=== PATIENT | female | born 1970 | race American Indian/Alaskan Native ===

== ENCOUNTER 2022-05-21 07:17 | Inpatient (IN) | payer SELFPAY ==
[2022-05-21] MEDS ORDERED: KETOROLAC 30 MG/1 ML INJ IV ONE (07:51)
--- NOTE | 2022-05-21 08:00 | Emergency Department Report ---
ED Abdominal Pain HPI - General Chief Complaint: Abdominal Pain Stated Complaint: ABD PAIN Time Seen by Provider: 05/21/22 07:45 Source: patient, EMS Mode of arrival: Stretcher Limitations: No Limitations - History of Present Illness Initial Comments: Patient is a 51-year-old female with history of uterine fibroids presenting to ED with complaint of lower abdominal pain beginning this morning. She reports 3 episodes of heavy bleeding over the past month. Requesting pain medication. Denies fever, chills, nausea or vomiting. Severity scale (0 -10): 10 - Related Data Home Medications Medication Instructions Recorded Confirmed Last Taken Escitalopram [Lexapro] 10 mg PO DAILY 05/22/22 05/22/22 Unknown amLODIPine [Norvasc] 10 mg PO DAILY 05/22/22 05/22/22 Unknown glipiZIDE [Glucotrol] 5 mg PO QDAY 05/22/22 05/22/22 Unknown Allergies Allergy/AdvReac Type Severity Reaction Status Date / Time No Known Allergies Allergy Verified 05/21/22 08:36 ED Review of Systems ROS: Stated complaint: ABD PAIN Other details as noted in HPI Constitutional: denies: chills, fever Respiratory: denies: cough, shortness of breath, wheezing Cardiovascular: denies: chest pain, palpitations Gastrointestinal: abdominal pain. denies: nausea, vomiting Musculoskeletal: denies: back pain, joint swelling, arthralgia Skin: denies: rash, lesions Neurological: denies: headache, weakness, paresthesias Psychiatric: denies: anxiety, depression ED Past Medical Hx - Past Medical History Hx Hypertension: Yes Hx Diabetes: Yes - Surgical History Additional Surgical History: fibroids - Social History Smoking Status: Never Smoker Substance Use Type: None - Medications Home Medications: Home Medications Medication Instructions Recorded Confirmed Last Taken Type Escitalopram [Lexapro] 10 mg PO DAILY 05/22/22 05/22/22 Unknown History amLODIPine [Norvasc] 10 mg PO DAILY 05/22/22 05/22/22 Unknown History glipiZIDE [Glucotrol] 5 mg PO QDAY 05/22/22 05/22/22 Unknown History ED Physical Exam - General Limitations: No Limitations General appearance: alert, in distress - Head Head exam: Present: atraumatic, normocephalic - Respiratory Respiratory exam: Present: normal lung sounds bilaterally. Absent: respiratory distress - Cardiovascular Cardiovascular Exam: Present: regular rate, normal rhythm, normal heart sounds - GI/Abdominal GI/Abdominal exam: Present: soft. Absent: distended, tenderness - Rectal Rectal exam: Present: deferred - Neurological Exam Neurological exam: Present: alert, oriented X3 - Psychiatric Psychiatric exam: Present: normal affect, normal mood - Skin Skin exam: Present: warm, dry, intact, normal color ED Course Vital Signs 05/21/22 05/21/22 05/21/22 07:22 07:44 07:45 Temperature 98.2 F Pulse Rate 85 90 Respiratory 20 14 Rate Blood Pressure 222/123 Blood Pressure 200/100 [Left] O2 Sat by Pulse 99 76 L 100 Oximetry 05/21/22 05/21/22 05/21/22 07:47 08:00 08:16 Temperature Pulse Rate 89 59 L 86 Respiratory 18 12 16 Rate Blood Pressure 222/123 219/136 Blood Pressure 222/123 [Left] O2 Sat by Pulse 100 100 100 Oximetry 05/21/22 05/21/22 05/21/22 08:30 08:46 09:00 Temperature Pulse Rate 82 87 74 Respiratory 21 16 14 Rate Blood Pressure 207/123 229/115 223/144 Blood Pressure [Left] O2 Sat by Pulse 100 100 100 Oximetry 05/21/22 05/21/22 05/21/22 09:16 09:30 09:46 Temperature Pulse Rate 94 H 83 85 Respiratory 21 14 15 Rate Blood Pressure 223/144 207/123 207/123 Blood Pressure [Left] O2 Sat by Pulse 98 100 99 Oximetry 05/21/22 05/21/22 05/21/22 10:00 10:16 10:30 Temperature Pulse Rate 83 89 87 Respiratory 14 20 14 Rate Blood Pressure 207/123 207/123 207/123 Blood Pressure [Left] O2 Sat by Pulse 99 99 100 Oximetry 05/21/22 05/21/22 05/21/22 10:46 11:00 11:16 Temperature Pulse Rate 90 92 H 86 Respiratory 14 15 14 Rate Blood Pressure 215/112 221/112 221/119 Blood Pressure [Left] O2 Sat by Pulse 99 97 100 Oximetry 05/21/22 05/21/22 05/21/22 11:30 11:45 12:08 Temperature Pulse Rate 90 99 H 97 H Respiratory 14 19 22 Rate Blood Pressure 231/109 236/118 199/111 Blood Pressure [Left] O2 Sat by Pulse 100 98 Oximetry 05/21/22 05/21/22 05/21/22 12:15 12:30 12:46 Temperature Pulse Rate 98 H 107 H 105 H Respiratory 15 23 14 Rate Blood Pressure 201/100 173/103 198/96 Blood Pressure [Left] O2 Sat by Pulse 99 99 Oximetry 05/21/22 05/21/22 05/21/22 13:00 13:16 13:30 Temperature Pulse Rate 104 H 102 H 102 H Respiratory 26 H 17 18 Rate Blood Pressure 180/97 181/95 176/94 Blood Pressure [Left] O2 Sat by Pulse 98 98 95 Oximetry 05/21/22 05/21/22 05/21/22 13:46 14:00 14:16 Temperature Pulse Rate 100 H 98 H 100 H Respiratory 20 16 22 Rate Blood Pressure 187/97 180/92 182/98 Blood Pressure [Left] O2 Sat by Pulse 98 96 98 Oximetry 05/21/22 05/21/22 05/21/22 14:30 14:46 15:00 Temperature Pulse Rate 99 H 98 H 97 H Respiratory 16 14 13 Rate Blood Pressure 185/96 191/105 201/107 Blood Pressure [Left] O2 Sat by Pulse 97 99 97 Oximetry 05/21/22 05/21/22 05/21/22 15:16 15:30 15:46 Temperature Pulse Rate 95 H 98 H 100 H Respiratory 14 14 18 Rate Blood Pressure 184/98 191/99 182/100 Blood Pressure [Left] O2 Sat by Pulse 99 98 98 Oximetry 05/21/22 05/21/22 05/21/22 16:00 16:16 16:30 Temperature Pulse Rate 99 H 104 H 97 H Respiratory 13 15 16 Rate Blood Pressure 189/104 182/108 195/106 Blood Pressure [Left] O2 Sat by Pulse 96 98 99 Oximetry 05/21/22 05/21/22 05/21/22 16:46 17:00 17:46 Temperature Pulse Rate 103 H 102 H 98 H Respiratory 13 20 15 Rate Blood Pressure 182/108 196/91 206/113 Blood Pressure [Left] O2 Sat by Pulse 98 99 100 Oximetry 05/21/22 05/21/22 05/21/22 18:00 18:16 18:30 Temperature Pulse Rate 106 H 97 H 92 H Respiratory 16 13 13 Rate Blood Pressure 189/131 216/120 179/84 Blood Pressure [Left] O2 Sat by Pulse 99 100 98 Oximetry 05/21/22 05/21/22 05/21/22 18:40 18:50 19:00 Temperature Pulse Rate 96 H 96 H 96 H Respiratory 20 17 19 Rate Blood Pressure 206/113 163/81 145/76 Blood Pressure [Left] O2 Sat by Pulse 96 96 98 Oximetry 05/21/22 05/21/22 05/21/22 19:10 19:20 19:30 Temperature Pulse Rate 95 H 90 95 H Respiratory 14 15 11 L Rate Blood Pressure 145/76 166/77 156/79 Blood Pressure [Left] O2 Sat by Pulse 99 97 97 Oximetry 05/21/22 19:40 Temperature Pulse Rate 93 H Respiratory 12 Rate Blood Pressure 156/79 Blood Pressure [Left] O2 Sat by Pulse 98 Oximetry ED Medical Decision Making - Lab Data Result diagrams: 05/22/22 04:39 05/22/22 11:38 - Medical Decision Making Labs reviewed. CT abdomen pelvis shows large ventral abdominal hernia. Discussed with on-call surgeon who will consult. Will admit to hospitalist. Critical care attestation.: If time is entered above; I have spent that time in minutes in the direct care of this critically ill patient, excluding procedure time. ED Disposition Clinical Impression: Leukocytosis, Lower abdominal pain Ventral hernia Qualifiers: Obstruction and gangrene presence: without obstruction or gangrene Qualified Code(s): K43.9 - Ventral hernia without obstruction or gangrene Disposition: ADMITTED INPATIENT Is pt being admited?: Yes Condition: Stable
[2022-05-21] MEDS ORDERED: ONDANSETRON 4 MG/2 ML INJ ONE ×2 (08:02→12:09)
[2022-05-21 09:07] LABS: Amphetamine Screen,Urine Negative; Benzodiazepines Screen,Urine Negative; Cannabinoid Screen,Urine Negative; Cocaine Screen,Urine Negative; Methadone Screen,Urine Negative; Opiate Screen,Urine Negative
[2022-05-21] MEDS ORDERED: MORPHINE 4 MG/1 ML INJ ONE (09:15)
[2022-05-21] MEDS ORDERED: MORPHINE 4 MG/1 ML INJ IV ONE (09:15)
[2022-05-21 09:33] LABS: WBC,Urine < 1.0 /HPF (0.0-6.0)
[2022-05-21 09:34] LABS: Color,Urine Colorless (Yellow)
[2022-05-21 10:41] LABS: Basophils # (Auto) 0.1 K/mm3 (0.0-0.1); Basophils % (Auto) 0.7 % (0.0-1.8); Hemoglobin 13.2 gm/dl (10.1-14.3); Lymphocytes # (Auto) 1.1 K/mm3 (1.2-5.4); Lymphocytes % (Auto) 7.2 % (13.4-35.0); Mean Corpuscular HGB Conc 32 % (30-34); Mean Corpuscular Volume 86 fl (79-97); Monocytes # (Auto) 0.5 K/mm3 (0.0-0.8); Monocytes % (Auto) 3.5 % (0.0-7.3); Platelet Count 279 K/mm3 (140-440); Red Blood Count 4.86 M/mm3 (3.65-5.03); Red Cell Distribution Width 14.5 % (13.2-15.2)
[2022-05-21 10:47] LABS: Alanine Aminotransferase 13 units/L (7-56); Albumin 4.5 g/dL (3.9-5); BUN/Creatinine Ratio 12; Blood Urea Nitrogen 14 mg/dL (7-17); Calcium 9.8 mg/dL (8.4-10.2); Hemolysis Index 15
[2022-05-21 10:48] LABS: Bilirubin,Direct < 0.2 mg/dL (0-0.2)
[2022-05-21] MEDS ORDERED: SODIUM CHLORIDE 0.9% 1000 ML 1,000 ML IV ONE ×3 (10:51→14:24)
[2022-05-21] MEDS ORDERED: DEXTROSE 50% IN WATER (25GM) 50 ML SYRINGE IV PRN (10:53)
[2022-05-21] MEDS ORDERED: INSULIN REGULAR, HUMAN 100 UNITS in SODIUM CHLORIDE 0.9% 99 ML IV SCH (11:00)
[2022-05-21 11:15] LABS: ABG Base Excess -3.7 mmol/L (-2.0-3.0); ABG HCO3 17.8 mmol/L (20.0-26.0); ABG Methemoglobin 0.5 % (0.0-1.5); ABG Oxygen Saturation 97.9 % (95.0-99.0); ABG PCO2 23.6 mm Hg; ABG PH 7.494 pH Units (7.350-7.450); ABG PO2 97.1 mm Hg (80.0-90.0)
[2022-05-21] MEDS ORDERED: hydrALAZINE 20 MG/1 ML INJ IV ONE ×2 (11:46→19:38)
--- NOTE | 2022-05-21 12:27 | Cat Scan Report ---
CT ABDOMEN AND PELVIS WITH CONTRAST INDICATION / CLINICAL INFORMATION: Lower abdominal pain OMNIPAQUE 350 100ML NEG PREG TEST. TECHNIQUE: Axial CT images were obtained through the abdomen and pelvis after 100 mL Omnipaque [address] scans at this location are performed using CT dose reduction for ALARA by means of automated exposure control. COMPARISON: None available. FINDINGS: LOWER CHEST: No significant abnormality. LIVER: No significant abnormality. GALLBLADDER: No significant abnormality. BILE DUCTS: No significant abnormality. PANCREAS: No significant abnormality. SPLEEN: No significant abnormality. ADRENALS: No significant abnormality. RIGHT KIDNEY / URETER: No significant abnormality. LEFT KIDNEY / URETER: No significant abnormality. STOMACH / SMALL BOWEL: Much of the small bowel extrudes through the ventral abdominal hernia and lies within the pannus. The small bowel and pannus are incompletely visualized. COLON: Diverticulosis without evidence of diverticulitis. No obstruction. APPENDIX: No significant abnormality. PERITONEUM: Large ventral abdominal hernia with 8 cm mouth containing much of the small bowel as well as the cecum and transverse colon. No free fluid. No free air. No fluid collection. LYMPH NODES: No significant adenopathy. AORTA / ARTERIES: No significant abnormality. IVC / VEINS: No significant abnormality. URINARY BLADDER: No significant abnormality. REPRODUCTIVE ORGANS: The uterus is markedly enlarged with multiple heterogeneously enhancing masses, some of which are centrally hypodense. These may represent extensive uterine fibroid is some which de monstrate increased central necrosis. Given the size and multiplicity of these lesions dedicated uter ine MRI with IV contrast is recommended. ADDITIONAL FINDINGS: None. SKELETAL SYSTEM: No significant abnormality. IMPRESSION: 1. Large ventral abdominal hernia with extrusion of much of the small bowel as well as the cecum and transverse colon. There is no evidence of obstruction. The small bowel is incompletely visualized as the panus extends beyond the [id number]. 2. Enlarged and multilobulated uterus with numerous heterogeneously enhancing masses. These may repre sent fibroids with many of which undergoing degeneration, however given the size, heterogeneity, and multiplicity, further evaluation with contrast-enhanced uterine MRI is recommended. Signer Name: Mike Chappell MD Signed: 05/21/2022 12:23 PM Workstation Name: [employer]
[2022-05-21] MEDS ORDERED: HYDROmorphone 1 MG/1 ML INJ IV ONE (12:41)
[2022-05-21] MEDS ORDERED: INSULIN REGULAR, HUMAN 100 UNITS/1 ML IV ONE (14:24)
[2022-05-21 15:06] LABS: BUN/Creatinine Ratio 14; Blood Urea Nitrogen 14 mg/dL (7-17); Calcium 8.3 mg/dL (8.4-10.2); Hemolysis Index 31
[2022-05-21 15:25] LABS: BUN/Creatinine Ratio 12; Blood Urea Nitrogen 11 mg/dL (7-17); Calcium 8.2 mg/dL (8.4-10.2); Hemolysis Index 30
--- NOTE | 2022-05-21 16:55 | History and Physical Report ---
History of Present Illness Date of examination: 05/21/22 Date of admission: 05/21/2022 Chief complaint: Lower abdominal pain for 1 week History of present illness: 51-year-old female with history of uterine fibroids comes in for severe abdominal pain especially in the lower abdomen in the suprapubic region. Also 3 with associated bleeding over the past month. Patient had fibroid removal in the past. Uterus is intact. During examination there is a ventral hernia in the lower part of abdomen. Bowel sounds are present. Pain is about 8 on a scale of 1-10. Intermittent in nature. No fever or chills. No precipitating factors. No dysuria. - Past Medical History --Hypertension: Yes --Diabetes: Yes - Surgical History Additional Surgical History: fibroids - Social History Smoking Status: Never Smoker Substance Use Type: None - Medications Home Medications: Home Medications Medication Instructions Recorded Confirmed Last Taken Type Cyclobenzaprine HCl 7.5 mg PO BID PRN #10 tab 07/18/16 Unknown Rx [Cyclobenzaprine 7.5 MG TAB] Ibuprofen [Motrin 800 MG tab] 800 mg PO BID PRN #10 tablet 07/18/16 Unknown Rx Review of Systems ROS: Stated complaint: ABD PAIN Other details as noted in HPI Constitutional: denies: chills, fever Respiratory: denies: cough, shortness of breath, wheezing Cardiovascular: denies: chest pain, palpitations Gastrointestinal: abdominal pain. denies: nausea, vomiting Musculoskeletal: denies: back pain, joint swelling, arthralgia Skin: denies: rash, lesions Neurological: denies: headache, weakness, paresthesias Psychiatric: denies: anxiety, depression Medications and Allergies Allergies Allergy/AdvReac Type Severity Reaction Status Date / Time No Known Allergies Allergy Verified 05/21/22 08:36 Home Medications Medication Instructions Recorded Confirmed Last Taken Type Escitalopram [Lexapro] 10 mg PO DAILY 05/22/22 05/22/22 Unknown History amLODIPine [Norvasc] 10 mg PO DAILY 05/22/22 05/22/22 Unknown History glipiZIDE [Glucotrol] 5 mg PO QDAY 05/22/22 05/22/22 Unknown History Active Meds: Active Medications Dextrose (Dextrose 50% In Water (25gm) 50 Ml Syringe) 0 ml IV Q30MIN PRN; Protocol PRN Reason: Hypoglycemia Exam - Constitutional Vitals: Temp Pulse Resp BP Pulse Ox 98.2 F 97 H 16 195/106 99 05/21/22 07:22 05/21/22 16:30 05/21/22 16:30 05/21/22 16:30 05/21/22 16:30 General appearance: Present: mild distress, well-nourished - EENT Eyes: Present: PERRL ENT: hearing intact, clear oral mucosa - Neck Neck: Present: supple, normal ROM - Respiratory Respiratory effort: normal Respiratory: bilateral: CTA - Cardiovascular Heart rate: 98 Rhythm: regular Heart Sounds: Present: S1 & S2. Absent: rub, click - Extremities Extremities: no ischemia, pulses intact, pulses symmetrical, No edema Peripheral Pulses: within normal limits - Abdominal General gastrointestinal: Present: soft, non-tender, non-distended, normal bowel sounds Localized gastrointestinal: tender: diffuse (Ventral hernia lower abdomen) Female genitourinary: Present: normal - Integumentary Integumentary: Present: clear, warm, dry - Musculoskeletal Musculoskeletal: gait normal, strength equal bilaterally - Psychiatric Psychiatric: appropriate mood/affect, intact judgment & insight - Neurologic Neurologic: CNII-XII intact, moves all extremities Results - Labs CBC & Chem 7: 05/22/22 04:39 05/22/22 04:39 Labs: Laboratory Last Values WBC 14.6 K/mm3 (4.5-11.0) H 05/21/22 10:18 RBC 4.86 M/mm3 (3.65-5.03) 05/21/22 10:18 Hgb 13.2 gm/dl (10.1-14.3) 05/21/22 10:18 Hct 42.0 % (30.3-42.9) 05/21/22 10:18 MCV 86 fl (79-97) 05/21/22 10:18 MCH 27 pg (28-32) L 05/21/22 10:18 MCHC 32 % (30-34) 05/21/22 10:18 RDW 14.5 % (13.2-15.2) 05/21/22 10:18 Plt Count 279 K/mm3 (140-440) 05/21/22 10:18 Lymph % (Auto) 7.2 % (13.4-35.0) L 05/21/22 10:18 Chambers % (Auto) 3.5 % (0.0-7.3) 05/21/22 10:18 Eos % (Auto) 0.0 % (0.0-4.3) 05/21/22 10:18 Baso % (Auto) 0.7 % (0.0-1.8) 05/21/22 10:18 Lymph # (Auto) 1.1 K/mm3 (1.2-5.4) L 05/21/22 10:18 Chambers # (Auto) 0.5 K/mm3 (0.0-0.8) 05/21/22 10:18 Eos # (Auto) 0.0 K/mm3 (0.0-0.4) 05/21/22 10:18 Baso # (Auto) 0.1 K/mm3 (0.0-0.1) 05/21/22 10:18 Seg Neutrophils % 88.6 % (40.0-70.0) H 05/21/22 10:18 Seg Neutrophils # 12.9 K/mm3 (1.8-7.7) H 05/21/22 10:18 ABG pH 7.494 pH Units (7.350-7.450) H 05/21/22 11:05 ABG pCO2 23.6 mm Hg 05/21/22 11:05 ABG pO2 97.1 mm Hg (80.0-90.0) H 05/21/22 11:05 ABG HCO3 17.8 mmol/L (20.0-26.0) L 05/21/22 11:05 ABG O2 Saturation 97.9 % (95.0-99.0) 05/21/22 11:05 ABG O2 Content 18.0 (0.0-44) 05/21/22 11:05 ABG Base Excess -3.7 mmol/L (-2.0-3.0) L 05/21/22 11:05 ABG Hemoglobin 13.3 gm/dl (12.0-16.0) 05/21/22 11:05 ABG Carboxyhemoglobin 1.6 % (0.0-5.0) 05/21/22 11:05 ABG Methemoglobin 0.5 % (0.0-1.5) 05/21/22 11:05 Oxyhemoglobin 95.9 % (95.0-99.0) 05/21/22 11:05 FiO2 21 % 05/21/22 11:05 Sodium 132 mmol/L (137-145) L 05/21/22 14:44 Sodium 135 mmol/L (137-145) L 05/21/22 14:44 Potassium 3.2 mmol/L (3.6-5.0) L D 05/21/22 14:44 Potassium 4.1 mmol/L (3.6-5.0) D 05/21/22 14:44 Chloride 99.9 mmol/L (98-107) 05/21/22 14:44 Chloride 102.4 mmol/L (98-107) 05/21/22 14:44 Carbon Dioxide 17 mmol/L (22-30) L 05/21/22 14:44 Carbon Dioxide 18 mmol/L (22-30) L 05/21/22 14:44 Anion Gap 17 mmol/L 05/21/22 14:44 Anion Gap 20 mmol/L 05/21/22 14:44 BUN 11 mg/dL (7-17) 05/21/22 14:44 BUN 14 mg/dL (7-17) 05/21/22 14:44 Creatinine 0.9 mg/dL (0.6-1.2) 05/21/22 14:44 Creatinine 1.0 mg/dL (0.6-1.2) 05/21/22 14:44 Estimated GFR > 60 ml/min 05/21/22 14:44 Estimated GFR > 60 ml/min 05/21/22 14:44 BUN/Creatinine Ratio 12 % 05/21/22 14:44 BUN/Creatinine Ratio 14 % 05/21/22 14:44 Glucose 112 mg/dL (65-100) H 05/21/22 14:44 Glucose 398 mg/dL (65-100) H 05/21/22 14:44 POC Glucose 410 mg/dL (70-105) H 05/21/22 11:37 Lactic Acid 1.20 mmol/L (0.7-2.0) 05/21/22 Unknown Calcium 8.2 mg/dL (8.4-10.2) L D 05/21/22 14:44 Calcium 8.3 mg/dL (8.4-10.2) L 05/21/22 14:44 Phosphorus 2.30 mg/dL (2.5-4.5) L 05/21/22 11:23 Magnesium 2.00 mg/dL (1.7-2.3) 05/21/22 11:23 Total Bilirubin 0.40 mg/dL (0.1-1.2) 05/21/22 10:18 Direct Bilirubin < 0.2 mg/dL (0-0.2) 05/21/22 10:18 Indirect Bilirubin 0.2 mg/dL 05/21/22 10:18 AST 18 units/L (5-40) 05/21/22 10:18 ALT 13 units/L (7-56) 05/21/22 10:18 Alkaline Phosphatase 92 units/L (35-129) 05/21/22 10:18 Total Protein 7.9 g/dL (6.3-8.2) 05/21/22 10:18 Albumin 4.5 g/dL (3.9-5) 05/21/22 10:18 Albumin/Globulin Ratio 1.3 % 05/21/22 10:18 HCG, Qual Negative (Negative) 05/21/22 10:18 Urine Color Colorless (Yellow) 05/21/22 Unknown Urine Turbidity Clear (Clear) 05/21/22 Unknown Specific [place] (Man) 1.010 (1.003-1.030) 05/21/22 Unknown Ur Protein (Man) 3+ mg/dL (Negative) 05/21/22 Unknown Ur Ketones (Man) 1+ (Negative) 05/21/22 Unknown Ur Nitrite (Man) Negative (Negative) 05/21/22 Unknown Ur Reducing Substances Not Reportable 05/21/22 Unknown Urine Bilirubin (Man) Negative (Negative) 05/21/22 Unknown Urine Ictotest Not Reportable 05/21/22 Unknown Leukocyte Esterase (Man) Negative (Negative) 05/21/22 Unknown Urine WBC (Auto) < 1.0 /HPF (0.0-6.0) 05/21/22 Unknown Urine RBC (Auto) 1.0 /HPF (0.0-6.0) 05/21/22 Unknown U Epithel Cells (Auto) 1.0 /HPF (0-13.0) 05/21/22 Unknown Urine RBC (Manual) 1+ (Negative) 05/21/22 Unknown Urine Opiates Screen Negative 05/21/22 08:50 Urine Methadone Screen Negative 05/21/22 08:50 Ur Barbiturates Screen Negative 05/21/22 08:50 Ur Phencyclidine Scrn Negative 05/21/22 08:50 Ur Amphetamines Screen Negative 05/21/22 08:50 U Benzodiazepines Scrn Negative 05/21/22 08:50 Urine Cocaine Screen Negative 05/21/22 08:50 U Marijuana (THC) Screen Negative 05/21/22 08:50 Drugs of Abuse Note Disclamer 05/21/22 08:50 - Imaging and Cardiology CT scan - abdomen: report reviewed CT scan - pelvis: report reviewed Imaging and Cardiology: Abdomen CT and pelvis Large ventral abdominal hernia with extrusion myself the small bowel as well as the cecum and transverse colon. There is no evidence of obstruction. The small bowel is incompletely visualized as the pannus extends beyond the [id number]. And Enlarging multilobulated uterus with numerous either axillary Absent masses. Represent fibroids with many FH undergoing degeneration. However given the size iatrogenically and multiplicity further evaluation with contrast-enhanced with an MRI is recommended. Assessment and Plan Advance Directives: Yes (Full code) VTE prophylaxis?: Chemical (Full code) Plan of care discussed with patient/family: Yes - Patient Problems (1) Acute abdominal pain Current Visit: Yes Status: Acute Plan to address problem: Secondary to ventral hernia in the suprapubic region. Needs surgical intervention. Surgery consulted. (2) Ventral hernia Current Visit: Yes Status: Acute Qualifiers: Obstruction and gangrene presence: without obstruction or gangrene Qualified Code(s): K43.9 - Ventral hernia without obstruction or gangrene Plan to address problem: Patient has severe ventral hernia in the lower abdomen involving the small bowel cecum and transverse colon. Also the uterus. Patient needs surgical intervention and may be hysterectomy. Will defer to surgery. (3) Leukocytosis Current Visit: Yes Status: Acute Plan to address problem: No source of infection. IV Zosyn for possible intra-abdominal infection. (4) Hypertension Current Visit: Yes Status: Chronic Qualifiers: Hypertension type: primary hypertension Qualified Code(s): I10 - Essential (primary) hypertension Plan to address problem: Continue antihypertensives. Adjust medications. (5) T2DM (type 2 diabetes mellitus) Current Visit: Yes Status: Chronic Qualifiers: Diabetes mellitus long-term insulin use: unspecified long-term insulin use status Plan to address problem: Coverage for now Check hemoglobin A1c (6) ANITA (acute kidney injury) Current Visit: Yes Status: Acute Plan to address problem: Vasomotor nephropathy IV fluids for now (7) DVT prophylaxis Current Visit: Yes Status: Acute Plan to address problem: On heparin and GI prophylaxis (8) Advance care planning Current Visit: Yes Status: Acute Plan to address problem: Disease education conducted, care plan discussed, diagnosis and prognosis discussed. Patient acknowledges care plan. Patient is full code. Care plan +30 minutes.
[2022-05-21] MEDS ORDERED: MORPHINE 2 MG/1 ML INJ IV PRN (17:01)
[2022-05-21] MEDS ORDERED: METOCLOPRAMIDE 10 MG/2 ML INJ IV PRN (17:01)
[2022-05-21] MEDS ORDERED: ONDANSETRON 4 MG/2 ML INJ IV PRN (17:01)
[2022-05-21] MEDS ORDERED: SODIUM CHLORIDE 0.9% 1000 ML 1,000 ML IV SCH (17:15)
[2022-05-21] MEDS ORDERED: HYDROmorphone 1 MG/1 ML INJ IV PRN (17:28)
[2022-05-21 17:43] LABS: BUN/Creatinine Ratio 13; Blood Urea Nitrogen 14 mg/dL (7-17); Calcium 9.1 mg/dL (8.4-10.2); Hemolysis Index 30
[2022-05-21] MEDS ORDERED: INSULIN LISPRO 100 UNIT/ML SUB-Q SCH (18:00)
[2022-05-21] MEDS: INSULIN LISPRO 100 UNIT/ML SUB-Q SCH ×2 (18:18→22:46)
[2022-05-21] MEDS: HEPARIN 5,000 UNIT/1 ML VIAL SUB-Q SCH (22:47)
[2022-05-21] MEDS: hydrALAZINE 20 MG/1 ML INJ IV PRN (22:47)
[2022-05-22] MEDS: INSULIN LISPRO 100 UNIT/ML SUB-Q SCH ×6 (02:22→21:35)
[2022-05-22] MEDS: ACETAMINOPHEN 325 MG TAB PO PRN ×3 (02:30→21:17)
[2022-05-22] MEDS ORDERED: ZOLPIDEM 5 MG TAB PO ONE (02:30)
[2022-05-22 05:24] LABS: Hematocrit 38.6 % (30.3-42.9); Hemoglobin 12.4 gm/dl (10.1-14.3); Mean Corpuscular HGB Conc 32 % (30-34); Mean Corpuscular Volume 85 fl (79-97); Platelet Count 330 K/mm3 (140-440); Red Blood Count 4.52 M/mm3 (3.65-5.03); Red Cell Distribution Width 14.9 % (13.2-15.2)
[2022-05-22 05:42] LABS: Calcium 8.8 mg/dL (8.4-10.2)
[2022-05-22 06:39] LABS: Basophils % (Manual) 0 % (0.0-1.8); Total Cells Counted 100
[2022-05-22 06:40] LABS: Anisocytosis 1+; Eosinophils % (Manual) 0 % (0.0-4.3); Platelet Estimate Consistent w Auto
[2022-05-22] MEDS: CEFEPIME/NS 2 GM/100 ML 2 GM/100 ML BAG IV SCH ×2 (07:18→21:16)
[2022-05-22] MEDS: HEPARIN 5,000 UNIT/1 ML VIAL SUB-Q SCH ×2 (10:01→21:17)
--- NOTE | 2022-05-22 11:39 | Progress Note ---
Assessment and Plan Assessment and plan: #Acute abdominal pain #Ventral hernia without obstruction or gangrene #SIRS Worsening leukocytosis WBC 14.6--> 23.2 CT abdomen/pelvis with contrast (05/21/2022) revealing "large ventral abdominal hernia with extrusion of much of the small bowel as well as the cecum and transverse colon; there is no evidence of obstruction. Small bowel is not completely visualized as the pannus extends beyond the [id number]". Continue cefepime 2 g daily. Unremarkable urinalysis. Pending blood cultures. General surgery consulted; pending recs. #ANITA secondary to vasomotor nephropathy Creatinine 1.5 (baseline within normal limits) Renally dose meds and avoid nephrotoxic drugs. Consider nephrology consult if creatinine worsens. Monitor with repeat BMP tomorrow morning. #Multiple fibroids with central necrosis CT abdomen/pelvis with contrast (05/21/2022) revealing enlarging multilobulated uterus with numerous heterogeneously enhancing masses. These may represent fibroids with many which undergoing degeneration. Continue analgesics as needed Gynecology consulted; pending recs. #Hypertension - home medications: Amlodipine 10 mg daily - current medications: Amlodipine 10 mg daily - SBP goal <160 and DBP goal <90 while inpatient - continue to monitor #Non-insulin dependent type II diabetes mellitus - hemoglobin A1c: Pending hemoglobin A1c - home regimen: Glipizide 5 mg daily - current regimen: Moderate SSI + glipizide 5 mg daily - blood glucose goal 140-180 while inpatient - continue to monitor #Depression Continue home Lexapro 10 mg daily #Obesity #Weight loss counseling #Exercise counseling - BMI 34.2 - Counseled patient on the importance of weight loss, incorporating exercise, and dietary changes (lean meats, fresh fruits and vegetables, and water intake). Patient expresses understanding. - Time: +15 min #Advanced care planning -Disease education conducted, care plan discussed, diagnoses discussed, prognosis discussed, and patient acknowledges understanding with care plan -Time: +30 min Disposition Plan: Continue medical management Total Time Spent with Patient (Minutes): 45 minutes History Interval history: No acute events overnight. Hospitalist Physical - Constitutional Vitals: Temp Pulse Resp BP Pulse Ox 99.3 F 109 H 16 150/92 98 05/22/22 04:53 05/22/22 04:53 05/22/22 04:53 05/22/22 04:53 05/22/22 04:53 General appearance: Present: no acute distress, well-nourished, obese - EENT Eyes: Present: PERRL, EOM intact ENT: hearing intact, clear oral mucosa, dentition normal - Neck Neck: Present: supple, normal ROM - Respiratory Respiratory effort: normal Respiratory: bilateral: CTA - Cardiovascular Rhythm: regular Heart Sounds: Present: S1 & S2 - Extremities Extremities: no ischemia, pulses intact, pulses symmetrical, No edema, normal temperature, normal color, Full ROM Peripheral Pulses: within normal limits - Abdominal General gastrointestinal: soft, non-tender, non-distended, normal bowel sounds - Integumentary Integumentary: Present: clear, warm, dry - Psychiatric Psychiatric: appropriate mood/affect, intact judgment & insight, memory intact, cooperative - Neurologic Neurologic: CNII-XII intact, moves all extremities - Allied Health Allied health notes reviewed: nursing Results - Labs CBC & Chem 7: 05/22/22 04:39 05/22/22 04:39 Labs: Laboratory Last Values WBC 23.2 K/mm3 (4.5-11.0) H 05/22/22 04:39 RBC 4.52 M/mm3 (3.65-5.03) 05/22/22 04:39 Hgb 12.4 gm/dl (10.1-14.3) 05/22/22 04:39 Hct 38.6 % (30.3-42.9) 05/22/22 04:39 MCV 85 fl (79-97) 05/22/22 04:39 MCH 28 pg (28-32) 05/22/22 04:39 MCHC 32 % (30-34) 05/22/22 04:39 RDW 14.9 % (13.2-15.2) 05/22/22 04:39 Plt Count 330 K/mm3 (140-440) 05/22/22 04:39 Lymph % (Auto) 7.2 % (13.4-35.0) L 05/21/22 10:18 [place] % (Auto) 3.5 % (0.0-7.3) 05/21/22 10:18 Eos % (Auto) 0.0 % (0.0-4.3) 05/21/22 10:18 Baso % (Auto) 0.7 % (0.0-1.8) 05/21/22 10:18 Lymph # (Auto) 1.1 K/mm3 (1.2-5.4) L 05/21/22 10:18 [place] # (Auto) 0.5 K/mm3 (0.0-0.8) 05/21/22 10:18 Eos # (Auto) 0.0 K/mm3 (0.0-0.4) 05/21/22 10:18 Baso # (Auto) 0.1 K/mm3 (0.0-0.1) 05/21/22 10:18 Add Manual Diff Complete 05/22/22 04:39 Total Counted 100 05/22/22 04:39 Seg Neutrophils % 88.6 % (40.0-70.0) H 05/21/22 10:18 Seg Neuts % (Manual) 77.0 % (40.0-70.0) H 05/22/22 04:39 Band Neutrophils % 0 % 05/22/22 04:39 Lymphocytes % (Manual) 18.0 % (13.4-35.0) 05/22/22 04:39 Reactive Lymphs % (Man) 0 % 05/22/22 04:39 Monocytes % (Manual) 5.0 % (0.0-7.3) 05/22/22 04:39 Eosinophils % (Manual) 0 % (0.0-4.3) 05/22/22 04:39 Basophils % (Manual) 0 % (0.0-1.8) 05/22/22 04:39 Metamyelocytes % 0 % 05/22/22 04:39 Myelocytes % 0 % 05/22/22 04:39 Promyelocytes % 0 % 05/22/22 04:39 Blast Cells % 0 % 05/22/22 04:39 Nucleated RBC % Not Reportable 05/22/22 04:39 Seg Neutrophils # 12.9 K/mm3 (1.8-7.7) H 05/21/22 10:18 Seg Neutrophils # Man 17.9 K/mm3 (1.8-7.7) H 05/22/22 04:39 Band Neutrophils # 0.0 K/mm3 05/22/22 04:39 Lymphocytes # (Manual) 4.2 K/mm3 (1.2-5.4) 05/22/22 04:39 Abs React Lymphs (Man) 0.0 K/mm3 05/22/22 04:39 Monocytes # (Manual) 1.2 K/mm3 (0.0-0.8) H 05/22/22 04:39 Eosinophils # (Manual) 0.0 K/mm3 (0.0-0.4) 05/22/22 04:39 Basophils # (Manual) 0.0 K/mm3 (0.0-0.1) 05/22/22 04:39 Metamyelocytes # 0.0 K/mm3 05/22/22 04:39 Myelocytes # 0.0 K/mm3 05/22/22 04:39 Promyelocytes # 0.0 K/mm3 05/22/22 04:39 Blast Cells # 0.0 K/mm3 05/22/22 04:39 WBC Morphology Not Reportable 05/22/22 04:39 Hypersegmented Neuts Not Reportable 05/22/22 04:39 Hyposegmented Neuts Not Reportable 05/22/22 04:39 Hypogranular Neuts Not Reportable 05/22/22 04:39 Smudge Cells Not Reportable 05/22/22 04:39 Toxic Granulation Not Reportable 05/22/22 04:39 Toxic Vacuolation Not Reportable 05/22/22 04:39 Dohle Bodies Not Reportable 05/22/22 04:39 Pelger-Huet Anomaly Not Reportable 05/22/22 04:39 Vikki Rods Not Reportable 05/22/22 04:39 Platelet Estimate Consistent w auto 05/22/22 04:39 Clumped Platelets Not Reportable 05/22/22 04:39 Plt Clumps, EDTA Not Reportable 05/22/22 04:39 Large Platelets Not Reportable 05/22/22 04:39 Giant Platelets Not Reportable 05/22/22 04:39 Platelet Satelliting Not Reportable 05/22/22 04:39 Plt Morphology Comment Not Reportable 05/22/22 04:39 RBC Morphology Not Reportable 05/22/22 04:39 Dimorphic RBCs Not Reportable 05/22/22 04:39 Polychromasia Not Reportable 05/22/22 04:39 Hypochromasia Not Reportable 05/22/22 04:39 Poikilocytosis Not Reportable 05/22/22 04:39 Anisocytosis 1+ 09/12/22 04:39 Microcytosis Not Reportable 05/22/22 04:39 Macrocytosis Not Reportable 05/22/22 04:39 Spherocytes Not Reportable 05/22/22 04:39 Pappenheimer Bodies Not Reportable 05/22/22 04:39 Sickle Cells Not Reportable 05/22/22 04:39 Target Cells Not Reportable 05/22/22 04:39 Tear Drop Cells Not Reportable 05/22/22 04:39 Ovalocytes Not Reportable 05/22/22 04:39 Helmet Cells Not Reportable 05/22/22 04:39 [place] Bodies Not Reportable 05/22/22 04:39 Galt Rings Not Reportable 05/22/22 04:39 Ashley Cells Not Reportable 05/22/22 04:39 Bite Cells Not Reportable 05/22/22 04:39 Crenated Cell Not Reportable 05/22/22 04:39 Elliptocytes Not Reportable 05/22/22 04:39 Acanthocytes (Spur) Not Reportable 05/22/22 04:39 Rouleaux Not Reportable 05/22/22 04:39 Hemoglobin C Crystals Not Reportable 05/22/22 04:39 Schistocytes Not Reportable 05/22/22 04:39 Malaria parasites Not Reportable 05/22/22 04:39 Hussein Bodies Not Reportable 05/22/22 04:39 Hem Pathologist Commnt No 05/22/22 04:39 ABG pH 7.494 pH Units (7.350-7.450) H 05/21/22 11:05 ABG pCO2 23.6 mm Hg 05/21/22 11:05 ABG pO2 97.1 mm Hg (80.0-90.0) H 05/21/22 11:05 ABG HCO3 17.8 mmol/L (20.0-26.0) L 05/21/22 11:05 ABG O2 Saturation 97.9 % (95.0-99.0) 05/21/22 11:05 ABG O2 Content 18.0 (0.0-44) 05/21/22 11:05 ABG Base Excess -3.7 mmol/L (-2.0-3.0) L 05/21/22 11:05 ABG Hemoglobin 13.3 gm/dl (12.0-16.0) 05/21/22 11:05 ABG Carboxyhemoglobin 1.6 % (0.0-5.0) 05/21/22 11:05 ABG Methemoglobin 0.5 % (0.0-1.5) 05/21/22 11:05 Oxyhemoglobin 95.9 % (95.0-99.0) 05/21/22 11:05 FiO2 21 % 05/21/22 11:05 Sodium 135 mmol/L (137-145) L 05/22/22 04:39 Potassium 4.1 mmol/L (3.6-5.0) 05/22/22 04:39 Chloride 99.8 mmol/L (98-107) 05/22/22 04:39 Carbon Dioxide 20 mmol/L (22-30) L 05/22/22 04:39 Anion Gap 19 mmol/L 05/22/22 04:39 BUN 20 mg/dL (7-17) H 05/22/22 04:39 Creatinine 1.5 mg/dL (0.6-1.2) H 05/22/22 04:39 Estimated GFR 44 ml/min 05/22/22 04:39 BUN/Creatinine Ratio 13 % 05/22/22 04:39 Glucose 179 mg/dL (65-100) H 05/22/22 04:39 POC Glucose 183 mg/dL (70-105) H 05/22/22 05:37 Lactic Acid 1.20 mmol/L (0.7-2.0) 05/21/22 Unknown Calcium 8.8 mg/dL (8.4-10.2) 05/22/22 04:39 Phosphorus 2.30 mg/dL (2.5-4.5) L 05/21/22 11:23 Magnesium 2.00 mg/dL (1.7-2.3) 05/21/22 11:23 Total Bilirubin 0.40 mg/dL (0.1-1.2) 05/21/22 10:18 Direct Bilirubin < 0.2 mg/dL (0-0.2) 05/21/22 10:18 Indirect Bilirubin 0.2 mg/dL 05/21/22 10:18 AST 18 units/L (5-40) 05/21/22 10:18 ALT 13 units/L (7-56) 05/21/22 10:18 Alkaline Phosphatase 92 units/L (35-129) 05/21/22 10:18 Total Protein 7.9 g/dL (6.3-8.2) 05/21/22 10:18 Albumin 4.5 g/dL (3.9-5) 05/21/22 10:18 Albumin/Globulin Ratio 1.3 % 05/21/22 10:18 HCG, Qual Negative (Negative) 05/21/22 10:18 Urine Color Colorless (Yellow) 05/21/22 Unknown Urine Turbidity Clear (Clear) 05/21/22 Unknown Specific [place] (Man) 1.010 (1.003-1.030) 05/21/22 Unknown Ur Protein (Man) 3+ mg/dL (Negative) 05/21/22 Unknown Ur Ketones (Man) 1+ (Negative) 05/21/22 Unknown Ur Nitrite (Man) Negative (Negative) 05/21/22 Unknown Ur Reducing Substances Not Reportable 05/21/22 Unknown Urine Bilirubin (Man) Negative (Negative) 05/21/22 Unknown Urine Ictotest Not Reportable 05/21/22 Unknown Leukocyte Esterase (Man) Negative (Negative) 05/21/22 Unknown Urine WBC (Auto) < 1.0 /HPF (0.0-6.0) 05/21/22 Unknown Urine RBC (Auto) 1.0 /HPF (0.0-6.0) 05/21/22 Unknown U Epithel Cells (Auto) 1.0 /HPF (0-13.0) 05/21/22 Unknown Urine RBC (Manual) 1+ (Negative) 05/21/22 Unknown Urine Opiates Screen Negative 05/21/22 08:50 Urine Methadone Screen Negative 05/21/22 08:50 Ur Barbiturates Screen Negative 05/21/22 08:50 Ur Phencyclidine Scrn Negative 05/21/22 08:50 Ur Amphetamines Screen Negative 05/21/22 08:50 U Benzodiazepines Scrn Negative 05/21/22 08:50 Urine Cocaine Screen Negative 05/21/22 08:50 U Marijuana (THC) Screen Negative 05/21/22 08:50 Drugs of Abuse Note Disclamer 05/21/22 08:50 [place]/IV: Voiding Method Toilet Active Medications - Current Medications Current Medications: Generic Name Dose Route Start Last Admin Trade Name Freq PRN Reason Stop Dose Admin Acetaminophen 650 mg 05/21/22 17:01 05/22/22 02:30 Acetaminophen 325 Mg Tab PO 650 mg Q4H PRN Administration Pain MILD(1-3)/Fever >100.5/DAMICO Dextrose 0 ml 05/21/22 10:53 Dextrose 50% In Water (25gm) 50 Ml Syringe IV Q30MIN PRN Hypoglycemia Protocol Heparin Sodium (Porcine) 5,000 unit 05/21/22 22:00 05/22/22 10:01 Heparin 5,000 Unit/1 Ml Vial SUB-Q 5,000 unit Q12HR PERRY Administration Hydralazine HCl 10 mg 05/21/22 21:46 05/21/22 22:47 Hydralazine 20 Mg/1 Ml Inj IV 10 mg Q6HR PRN Administration Blood Pressure Hydromorphone HCl 1 mg 05/21/22 17:28 05/21/22 18:42 Hydromorphone 1 Mg/1 Ml Inj IV 1 mg Q3H PRN Administration Pain , Severe (7-10) Sodium Chloride 1,000 mls @ 75 mls/hr 05/21/22 17:15 05/21/22 22:45 Nacl 0.9% 1000 Ml IV 75 mls/hr DIRECT PERRY Administration Cefepime HCl 2 gm in 100 mls @ 200 mls/hr 05/22/22 07:00 05/22/22 07:18 Cefepime/Ns 2 Gm/100 Ml IV 200 mls/hr Q12H PERRY Administration Protocol Insulin Human Lispro 0 unit 05/21/22 18:00 05/22/22 10:12 Insulin Lispro 100 Unit/Ml SUB-Q 3 unit Q4H PERRY Administration Protocol Melatonin 10 mg 05/22/22 22:00 Melatonin 5 Mg Tab PO QHS PERRY Metoclopramide HCl 10 mg 05/21/22 17:01 Metoclopramide 10 Mg/2 Ml Inj IV Q6H PRN Nausea And Vomiting Morphine Sulfate 2 mg 05/21/22 17:01 05/21/22 22:49 Morphine 2 Mg/1 Ml Inj IV 2 mg Q4H PRN Administration Pain, Moderate (4-6) Ondansetron HCl 4 mg 05/21/22 17:01 Ondansetron 4 Mg/2 Ml Inj IV Q8H PRN Nausea And Vomiting Sodium Chloride 10 ml 05/21/22 22:00 05/22/22 10:03 Sodium Chloride 0.9% 10 Ml Flush Syringe IV 10 ml BID PERRY Administration Sodium Chloride 10 ml 05/21/22 17:01 Sodium Chloride 0.9% 10 Ml Flush Syringe IV PRN PRN LINE FLUSH
[2022-05-22] MEDS: amLODIPine 10 MG TAB PO SCH (12:24)
[2022-05-22] MEDS: ESCITALOPRAM 10 MG TAB PO SCH (12:24)
[2022-05-22] MEDS: glipiZIDE 5 MG TAB PO SCH (12:24)
[2022-05-22 12:39] LABS: Calcium 8.7 mg/dL (8.4-10.2)
--- NOTE | 2022-05-22 12:59 | Consultation ---
History of Present Illness Consult date: 05/22/22 Reason for consult: abdominal pain Chief complaint: abdominal pain - History of present illness this is a 51 yo woman who presented to the ER with one day of lower abdominal pain, associated with nausea and vomiting yellow fluid. she has hx of uterine fibroids and had surgical excision of fibroid in the past. she says this pain is worse than usual fibroid pain and is associated with abdominal bulge that is noticeable in the past year. she denies constipation and is passing flatus. she never had a colonoscopy. in ED she was HDS with mildly elevated WBC and CT scan showed large incisional hernia in the lower abdomen containing large amount of small bowel as well as cecum and transverse colon. this morning she feels much better, denies nausea or vomiting, abdominal pain resolved but her WBC jumped to 24. denies dysuria, chest pain, coughing. Review of Systems All systems: negative (mentioned above in HPI) Past History Past Medical History: diabetes, other (uterine fibroids) Past Surgical History: Other (uterine fibroid excision) Social history: no significant social history Family history: no significant family history Medications and Allergies Allergies Allergy/AdvReac Type Severity Reaction Status Date / Time No Known Allergies Allergy Verified 05/21/22 08:36 Home Medications Medication Instructions Recorded Confirmed Last Taken Type Escitalopram [Lexapro] 10 mg PO DAILY 05/22/22 05/22/22 Unknown History amLODIPine [Norvasc] 10 mg PO DAILY 05/22/22 05/22/22 Unknown History glipiZIDE [Glucotrol] 5 mg PO QDAY 05/22/22 05/22/22 Unknown History Active Meds: Active Medications Acetaminophen (Acetaminophen 325 Mg Tab) 650 mg PO Q4H PRN PRN Reason: Pain MILD(1-3)/Fever >100.5/DAMICO Last Admin: 05/22/22 02:30 Dose: 650 mg Amlodipine Besylate (Amlodipine 10 Mg Tab) 10 mg PO DAILY [facility] Last Admin: 05/22/22 12:24 Dose: 10 mg Dextrose (Dextrose 50% In Water (25gm) 50 Ml Syringe) 0 ml IV Q30MIN PRN; Protocol PRN Reason: Hypoglycemia Escitalopram Oxalate (Escitalopram 10 Mg Tab) 10 mg PO DAILY [facility] Last Admin: 05/22/22 12:24 Dose: 10 mg Glipizide (Glipizide 5 Mg Tab) 5 mg PO QDDIAB [facility] Last Admin: 05/22/22 12:24 Dose: 5 mg Heparin Sodium (Porcine) (Heparin 5,000 Unit/1 Ml Vial) 5,000 unit SUB-Q Q12HR [facility] Last Admin: 05/22/22 10:01 Dose: 5,000 unit Hydralazine HCl (Hydralazine 20 Mg/1 Ml Inj) 10 mg IV Q6HR PRN PRN Reason: Blood Pressure Last Admin: 05/21/22 22:47 Dose: 10 mg Hydromorphone HCl (Hydromorphone 1 Mg/1 Ml Inj) 1 mg IV Q3H PRN PRN Reason: Pain , Severe (7-10) Last Admin: 05/21/22 18:42 Dose: 1 mg Cefepime HCl (Cefepime/Ns 2 Gm/100 Ml) 2 gm in 100 mls @ 200 mls/hr IV Q12H [facility]; Protocol Last Admin: 05/22/22 07:18 Dose: 200 mls/hr Insulin Human Lispro (Insulin Lispro 100 Unit/Ml) 0 unit SUB-Q Q4H [facility]; Protocol Last Admin: 05/22/22 10:12 Dose: 3 unit Melatonin (Melatonin 5 Mg Tab) 10 mg PO QHS [facility] Metoclopramide HCl (Metoclopramide 10 Mg/2 Ml Inj) 10 mg IV Q6H PRN PRN Reason: Nausea And Vomiting Morphine Sulfate (Morphine 2 Mg/1 Ml Inj) 2 mg IV Q4H PRN PRN Reason: Pain, Moderate (4-6) Last Admin: 05/21/22 22:49 Dose: 2 mg Ondansetron HCl (Ondansetron 4 Mg/2 Ml Inj) 4 mg IV Q8H PRN PRN Reason: Nausea And Vomiting Sodium Chloride (Sodium Chloride 0.9% 10 Ml Flush Syringe) 10 ml IV BID [facility] Last Admin: 05/22/22 10:03 Dose: 10 ml Sodium Chloride (Sodium Chloride 0.9% 10 Ml Flush Syringe) 10 ml IV PRN PRN PRN Reason: LINE FLUSH Results - Labs 05/22/22 04:39 05/22/22 11:38 Abnormal lab results 05/21/22 05/21/22 05/21/22 Range/Units 08:10 11:37 14:44 WBC (4.5-11.0) K/mm3 Seg Neuts % (Manual) (40.0-70.0) % Seg Neutrophils # Man (1.8-7.7) K/mm3 Monocytes # (Manual) (0.0-0.8) K/mm3 Sodium 132 L (137-145) mmol/L Potassium 3.2 L D (3.6-5.0) mmol/L Carbon Dioxide 18 L (22-30) mmol/L BUN (7-17) mg/dL Creatinine (0.6-1.2) mg/dL Glucose 112 H (65-100) mg/dL POC Glucose 448 H 410 H (70-105) mg/dL Calcium 8.2 L D (8.4-10.2) mg/dL 05/21/22 05/21/22 05/21/22 Range/Units 14:44 17:00 18:15 WBC (4.5-11.0) K/mm3 Seg Neuts % (Manual) (40.0-70.0) % Seg Neutrophils # Man (1.8-7.7) K/mm3 Monocytes # (Manual) (0.0-0.8) K/mm3 Sodium 135 L 136 L (137-145) mmol/L Potassium (3.6-5.0) mmol/L Carbon Dioxide 17 L 19 L (22-30) mmol/L BUN (7-17) mg/dL Creatinine (0.6-1.2) mg/dL Glucose 398 H 341 H (65-100) mg/dL POC Glucose 347 H (70-105) mg/dL Calcium 8.3 L (8.4-10.2) mg/dL 05/21/22 05/22/22 05/22/22 Range/Units 21:00 02:11 04:39 WBC (4.5-11.0) K/mm3 Seg Neuts % (Manual) (40.0-70.0) % Seg Neutrophils # Man (1.8-7.7) K/mm3 Monocytes # (Manual) (0.0-0.8) K/mm3 Sodium 135 L (137-145) mmol/L Potassium (3.6-5.0) mmol/L Carbon Dioxide 20 L (22-30) mmol/L BUN 20 H (7-17) mg/dL Creatinine 1.5 H (0.6-1.2) mg/dL Glucose 179 H (65-100) mg/dL POC Glucose 293 H 188 H (70-105) mg/dL Calcium (8.4-10.2) mg/dL 05/22/22 05/22/22 05/22/22 Range/Units 04:39 05:37 11:38 WBC 23.2 H (4.5-11.0) K/mm3 Seg Neuts % (Manual) 77.0 H (40.0-70.0) % Seg Neutrophils # Man 17.9 H (1.8-7.7) K/mm3 Monocytes # (Manual) 1.2 H (0.0-0.8) K/mm3 Sodium (137-145) mmol/L Potassium (3.6-5.0) mmol/L Carbon Dioxide 19 L (22-30) mmol/L BUN 23 H (7-17) mg/dL Creatinine 1.5 H (0.6-1.2) mg/dL Glucose 153 H (65-100) mg/dL POC Glucose 183 H (70-105) mg/dL Calcium (8.4-10.2) mg/dL Diabetes panel 05/21/22 05/21/22 05/21/22 Range/Units 14:44 14:44 17:00 Sodium 132 L 135 L 136 L (137-145) mmol/L Potassium 3.2 L D 4.1 D 3.9 (3.6-5.0) mmol/L Chloride 99.9 102.4 100.2 (98-107) mmol/L Carbon Dioxide 18 L 17 L 19 L (22-30) mmol/L BUN 11 14 14 (7-17) mg/dL Creatinine 0.9 1.0 1.1 (0.6-1.2) mg/dL Glucose 112 H 398 H 341 H (65-100) mg/dL Calcium 8.2 L D 8.3 L 9.1 (8.4-10.2) mg/dL 05/22/22 05/22/22 Range/Units 04:39 11:38 Sodium 135 L 137 (137-145) mmol/L Potassium 4.1 4.0 (3.6-5.0) mmol/L Chloride 99.8 103.3 (98-107) mmol/L Carbon Dioxide 20 L 19 L (22-30) mmol/L BUN 20 H 23 H (7-17) mg/dL Creatinine 1.5 H 1.5 H (0.6-1.2) mg/dL Glucose 179 H 153 H (65-100) mg/dL Calcium 8.8 8.7 (8.4-10.2) mg/dL Calcium panel 05/21/22 05/21/22 05/21/22 Range/Units 14:44 14:44 17:00 Calcium 8.2 L D 8.3 L 9.1 (8.4-10.2) mg/dL 05/22/22 05/22/22 Range/Units 04:39 11:38 Calcium 8.8 8.7 (8.4-10.2) mg/dL Pituitary panel 05/21/22 05/21/22 05/21/22 Range/Units 14:44 14:44 17:00 Sodium 132 L 135 L 136 L (137-145) mmol/L Potassium 3.2 L D 4.1 D 3.9 (3.6-5.0) mmol/L Chloride 99.9 102.4 100.2 (98-107) mmol/L Carbon Dioxide 18 L 17 L 19 L (22-30) mmol/L BUN 11 14 14 (7-17) mg/dL Creatinine 0.9 1.0 1.1 (0.6-1.2) mg/dL Glucose 112 H 398 H 341 H (65-100) mg/dL Calcium 8.2 L D 8.3 L 9.1 (8.4-10.2) mg/dL 05/22/22 05/22/22 Range/Units 04:39 11:38 Sodium 135 L 137 (137-145) mmol/L Potassium 4.1 4.0 (3.6-5.0) mmol/L Chloride 99.8 103.3 (98-107) mmol/L Carbon Dioxide 20 L 19 L (22-30) mmol/L BUN 20 H 23 H (7-17) mg/dL Creatinine 1.5 H 1.5 H (0.6-1.2) mg/dL Glucose 179 H 153 H (65-100) mg/dL Calcium 8.8 8.7 (8.4-10.2) mg/dL Adrenal panel 09/08/0105/21/22 05/21/22 Range/Units 14:44 14:44 17:00 Sodium 132 L 135 L 136 L (137-145) mmol/L Potassium 3.2 L D 4.1 D 3.9 (3.6-5.0) mmol/L Chloride 99.9 102.4 100.2 (98-107) mmol/L Carbon Dioxide 18 L 17 L 19 L (22-30) mmol/L BUN 11 14 14 (7-17) mg/dL Creatinine 0.9 1.0 1.1 (0.6-1.2) mg/dL Glucose 112 H 398 H 341 H (65-100) mg/dL Calcium 8.2 L D 8.3 L 9.1 (8.4-10.2) mg/dL 05/22/22 05/22/22 Range/Units 04:39 11:38 Sodium 135 L 137 (137-145) mmol/L Potassium 4.1 4.0 (3.6-5.0) mmol/L Chloride 99.8 103.3 (98-107) mmol/L Carbon Dioxide 20 L 19 L (22-30) mmol/L BUN 20 H 23 H (7-17) mg/dL Creatinine 1.5 H 1.5 H (0.6-1.2) mg/dL Glucose 179 H 153 H (65-100) mg/dL Calcium 8.8 8.7 (8.4-10.2) mg/dL All other labs normal. Exam Vital Signs Temp Pulse Resp BP Pulse Ox 98.2 F 85 20 200/100 99 05/21/22 07:22 05/21/22 07:22 05/21/22 07:22 05/21/22 07:22 05/21/22 07:22 Vital Signs - 24 hr 05/21/22 05/21/22 05/21/22 13:00 13:16 13:30 Temperature Pulse Rate 104 H 102 H 102 H Respiratory 26 H 17 18 Rate Blood Pressure 180/97 181/95 176/94 O2 Sat by Pulse 98 98 95 Oximetry 05/21/22 05/21/22 05/21/22 13:46 14:00 14:16 Temperature Pulse Rate 100 H 98 H 100 H Respiratory 20 16 22 Rate Blood Pressure 187/97 180/92 182/98 O2 Sat by Pulse 98 96 98 Oximetry 05/21/22 05/21/22 05/21/22 14:30 14:46 15:00 Temperature Pulse Rate 99 H 98 H 97 H Respiratory 16 14 13 Rate Blood Pressure 185/96 191/105 201/107 O2 Sat by Pulse 97 99 97 Oximetry 05/21/22 05/21/22 05/21/22 15:16 15:30 15:46 Temperature Pulse Rate 95 H 98 H 100 H Respiratory 14 14 18 Rate Blood Pressure 184/98 191/99 182/100 O2 Sat by Pulse 99 98 98 Oximetry 05/21/22 05/21/22 05/21/22 16:00 16:16 16:30 Temperature Pulse Rate 99 H 104 H 97 H Respiratory 13 15 16 Rate Blood Pressure 189/104 182/108 195/106 O2 Sat by Pulse 96 98 99 Oximetry 05/21/22 05/21/22 05/21/22 16:46 17:00 17:46 Temperature Pulse Rate 103 H 102 H 98 H Respiratory 13 20 15 Rate Blood Pressure 182/108 196/91 206/113 O2 Sat by Pulse 98 99 100 Oximetry 05/21/22 05/21/22 05/21/22 18:00 18:16 18:30 Temperature Pulse Rate 106 H 97 H 92 H Respiratory 16 13 13 Rate Blood Pressure 189/131 216/120 179/84 O2 Sat by Pulse 99 100 98 Oximetry 05/21/22 05/21/22 05/21/22 18:40 18:50 19:00 Temperature Pulse Rate 96 H 96 H 96 H Respiratory 20 17 19 Rate Blood Pressure 206/113 163/81 145/76 O2 Sat by Pulse 96 96 98 Oximetry 05/21/22 05/21/22 05/21/22 19:10 19:20 19:30 Temperature Pulse Rate 95 H 90 95 H Respiratory 14 15 11 L Rate Blood Pressure 145/76 166/77 156/79 O2 Sat by Pulse 99 97 97 Oximetry 05/21/22 05/21/22 05/21/22 19:40 20:32 22:00 Temperature 98.6 F Pulse Rate 93 H 113 H Respiratory 12 16 17 Rate Blood Pressure 156/79 171/100 O2 Sat by Pulse 98 97 95 Oximetry 05/21/22 05/21/22 05/21/22 22:47 22:49 23:19 Temperature Pulse Rate 113 H Respiratory 17 17 Rate Blood Pressure 171/100 O2 Sat by Pulse Oximetry 05/22/22 05/22/22 05/22/22 02:30 03:30 04:53 Temperature 99.3 F Pulse Rate 109 H Respiratory 17 17 16 Rate Blood Pressure 150/92 O2 Sat by Pulse 98 Oximetry 05/22/22 05/22/22 11:59 12:24 Temperature 100.1 F H Pulse Rate 103 H 90 Respiratory 18 Rate Blood Pressure 181/106 183/97 O2 Sat by Pulse 98 Oximetry - General physical appearance Positive: well developed, well nourished - Respiratory Positive: normal expansion, normal respiratory effort - Cardiovascular Rhythm: regular - Abdomen Abdomen: soft (non tender, there is a lower abdominal incisoinal hernia containing large amount of bowel.) Hernia: incisional, incarcerated - Neurologic normal coordination (no focal deficits) Assessment and Plan this is a 51 yo woman with morbid obesity, poorly controlled DM, hx of uterine fibroids. presented with lower abdominal incional hernia containing large amount of small bowel and colon with a wide neck. her exam is benign and she feels much better today. low suspicion of strangulated hernia. as for her leukocytosis she needs further workup with blood cultures and CXR, and repeat labs in am. -ventral incisional hernia: wide neck with large amount of bowel herniated but benign exam and low risk of strangulation. I explained to the patient the nature of the her hernia. her management will be to control her DM and attempt weight loss. she will need gynecology consultation and colonoscopy prior to definitive repair which can be elective. -ok for diet -appreciate gynecology consultation -leukocytosis workup -will continue serial abdominal exams -she will need SW and CM consultation to work on insurance and assist in financi al situation for future treatments
[2022-05-22] MEDS: hydrALAZINE 20 MG/1 ML INJ IV PRN (17:52)
--- NOTE | 2022-05-22 18:37 | Consultation ---
History of Present Illness Consult date: 05/22/22 Reason for consult: menorrhagia, pelvic pain History of present illness: 51-year-old G0 presents to the emergency department with a complaint of vaginal bleeding and pelvic pain. The patient has a known history of uterine fibroids. She reports having menorrhagia with her menses where she passes clots during her cycle. At the time of presentation the patient reported extreme pelvic abdominal pain. She was admitted for further evaluation. CT of the abdomen and pelvis revealed a markedly enlarged fibroid uterus and evidence of a ventral hernia. Past History Past Medical History: hypertension, diabetes, other (Uterine fibroids) Past Surgical History: myomectomy Social history: single - Obstetrical History : 0 Para: 0 Medications and Allergies Allergies Allergy/AdvReac Type Severity Reaction Status Date / Time No Known Allergies Allergy Verified 05/21/22 08:36 Home Medications Medication Instructions Recorded Confirmed Last Taken Type Escitalopram [Lexapro] 10 mg PO DAILY 05/22/22 05/22/22 Unknown History amLODIPine [Norvasc] 10 mg PO DAILY 05/22/22 05/22/22 Unknown History glipiZIDE [Glucotrol] 5 mg PO QDAY 05/22/22 05/22/22 Unknown History Active Meds: Active Medications Acetaminophen (Acetaminophen 325 Mg Tab) 650 mg PO Q4H PRN PRN Reason: Pain MILD(1-3)/Fever >100.5/DAMICO Last Admin: 05/22/22 17:45 Dose: 650 mg Amlodipine Besylate (Amlodipine 10 Mg Tab) 10 mg PO DAILY [facility] Last Admin: 05/22/22 12:24 Dose: 10 mg Dextrose (Dextrose 50% In Water (25gm) 50 Ml Syringe) 0 ml IV Q30MIN PRN; Protocol PRN Reason: Hypoglycemia Escitalopram Oxalate (Escitalopram 10 Mg Tab) 10 mg PO DAILY [facility] Last Admin: 05/22/22 12:24 Dose: 10 mg Glipizide (Glipizide 5 Mg Tab) 5 mg PO QDDIAB [facility] Last Admin: 05/22/22 12:24 Dose: 5 mg Heparin Sodium (Porcine) (Heparin 5,000 Unit/1 Ml Vial) 5,000 unit SUB-Q Q12HR [facility] Last Admin: 05/22/22 10:01 Dose: 5,000 unit Hydralazine HCl (Hydralazine 20 Mg/1 Ml Inj) 10 mg IV Q6HR PRN PRN Reason: Blood Pressure Last Admin: 05/22/22 17:52 Dose: 10 mg Hydromorphone HCl (Hydromorphone 1 Mg/1 Ml Inj) 1 mg IV Q3H PRN PRN Reason: Pain , Severe (7-10) Last Admin: 05/21/22 18:42 Dose: 1 mg Cefepime HCl (Cefepime/Ns 2 Gm/100 Ml) 2 gm in 100 mls @ 200 mls/hr IV Q12H [facility]; Protocol Last Admin: 05/22/22 07:18 Dose: 200 mls/hr Insulin Human Lispro (Insulin Lispro 100 Unit/Ml) 0 unit SUB-Q Q4H [facility]; Protocol Last Admin: 05/22/22 17:41 Dose: 3 unit Melatonin (Melatonin 5 Mg Tab) 10 mg PO QHS [facility] Metoclopramide HCl (Metoclopramide 10 Mg/2 Ml Inj) 10 mg IV Q6H PRN PRN Reason: Nausea And Vomiting Morphine Sulfate (Morphine 2 Mg/1 Ml Inj) 2 mg IV Q4H PRN PRN Reason: Pain, Moderate (4-6) Last Admin: 05/21/22 22:49 Dose: 2 mg Ondansetron HCl (Ondansetron 4 Mg/2 Ml Inj) 4 mg IV Q8H PRN PRN Reason: Nausea And Vomiting Sodium Chloride (Sodium Chloride 0.9% 10 Ml Flush Syringe) 10 ml IV BID [facility] Last Admin: 05/22/22 10:03 Dose: 10 ml Sodium Chloride (Sodium Chloride 0.9% 10 Ml Flush Syringe) 10 ml IV PRN PRN PRN Reason: LINE FLUSH Review of Systems All systems: negative Genitourinary: vaginal bleeding, pelvic pain - Vital Signs Vital signs: Vital Signs Temp Pulse Resp BP Pulse Ox 98.2 F 85 20 200/100 99 05/21/22 07:22 05/21/22 07:22 05/21/22 07:22 05/21/22 07:22 05/21/22 07:22 Temp Pulse Resp BP Pulse Ox 98.9 F 94 H 20 199/104 98 05/22/22 16:39 05/22/22 17:52 05/22/22 17:45 05/22/22 17:52 05/22/22 16:39 - Physical Exam Breasts: Positive: deferred Cardiovascular: Regular rate Lungs: Positive: Clear to auscultation Abdomen: Positive: normal appearance Results Result Diagrams: 05/22/22 04:39 05/22/22 11:38 Abnormal lab results 05/21/22 05/22/22 05/22/22 Range/Units 21:00 02:11 04:39 WBC (4.5-11.0) K/mm3 Seg Neuts % (Manual) (40.0-70.0) % Seg Neutrophils # Man (1.8-7.7) K/mm3 Monocytes # (Manual) (0.0-0.8) K/mm3 Sodium 135 L (137-145) mmol/L Carbon Dioxide 20 L (22-30) mmol/L BUN 20 H (7-17) mg/dL Creatinine 1.5 H (0.6-1.2) mg/dL Glucose 179 H (65-100) mg/dL POC Glucose 293 H 188 H (70-105) mg/dL 05/22/22 05/22/22 05/22/22 Range/Units 04:39 05:37 11:38 WBC 23.2 H (4.5-11.0) K/mm3 Seg Neuts % (Manual) 77.0 H (40.0-70.0) % Seg Neutrophils # Man 17.9 H (1.8-7.7) K/mm3 Monocytes # (Manual) 1.2 H (0.0-0.8) K/mm3 Sodium (137-145) mmol/L Carbon Dioxide 19 L (22-30) mmol/L BUN 23 H (7-17) mg/dL Creatinine 1.5 H (0.6-1.2) mg/dL Glucose 153 H (65-100) mg/dL POC Glucose 183 H (70-105) mg/dL All other labs normal. Assessment and Plan - Patient Problems (1) Uterine fibroid Current Visit: Yes Status: Acute Plan to address problem: Pelvic ultrasound ordered to delineate the size of the uterus If vaginal bleeding is stable recommend outpatient follow-up for further evaluation of uterine fibroids (2) Menorrhagia Current Visit: Yes Status: Acute
[2022-05-22] MEDS ORDERED: MELATONIN 5 MG TAB PO SCH (22:00)
[2022-05-23] MEDS: INSULIN LISPRO 100 UNIT/ML SUB-Q SCH ×3 (02:00→10:58)
[2022-05-23] MEDS ORDERED: KETOROLAC 30 MG/1 ML INJ IV ONE (02:02)
[2022-05-23] MEDS: hydrALAZINE 20 MG/1 ML INJ IV PRN (05:58)
[2022-05-23] MEDS: CEFEPIME/NS 2 GM/100 ML 2 GM/100 ML BAG IV SCH (05:59)
[2022-05-23 06:23] LABS: Basophils # (Auto) 0.1 K/mm3 (0.0-0.1); Basophils % (Auto) 0.8 % (0.0-1.8); Eosinophils # (Auto) 0.1 K/mm3 (0.0-0.4); Eosinophils % (Auto) 0.6 % (0.0-4.3); Hemoglobin 12.2 gm/dl (10.1-14.3); Lymphocytes # (Auto) 2.5 K/mm3 (1.2-5.4); Lymphocytes % (Auto) 18.7 % (13.4-35.0); Mean Corpuscular HGB Conc 31 % (30-34); Mean Corpuscular Volume 86 fl (79-97); Monocytes # (Auto) 0.9 K/mm3 (0.0-0.8); Monocytes % (Auto) 6.9 % (0.0-7.3); Platelet Count 327 K/mm3 (140-440); Red Blood Count 4.53 M/mm3 (3.65-5.03)
[2022-05-23] MEDS: glipiZIDE 5 MG TAB PO SCH (08:56)
[2022-05-23] MEDS ORDERED: POLYETHYLENE GLYCOL 3350 17 GM POWDER PO SCH (10:00)
--- NOTE | 2022-05-23 10:10 | Progress Note ---
Assessment and Plan 51 yo woman with uncomplicated diverticulitis -continue non operative management, clinically improving -keep on CLD for now, abdomen remains tender -added miralax for stool softner -continue iv abx -DVT ppx -ambulation -will watch for colovesical fistula symptoms Subjective Date of service: 05/23/22 Narrative: doing well, pain improving daily, able to pass flatus, no bowel movement yet, feels dysuria and questionable pneumaturia. tolerating clears Objective Vital Signs - 12hr 05/22/22 05/23/22 05/23/22 23:35 05:35 05:58 Temperature 98.9 F Pulse Rate 89 Respiratory 20 Rate Blood Pressure 184/96 184/96 O2 Sat by Pulse 95 94 Oximetry - General physical appearance well developed, well nourished - Respiratory normal expansion, normal respiratory effort - CArdiovascular Rhythm: regular - Abdomen soft (less tender in left lower quadrant, non distended) - Labs 05/23/22 05:49 05/22/22 11:38 Diabetes panel 05/22/22 Range/Units 11:38 Sodium 137 (137-145) mmol/L Potassium 4.0 (3.6-5.0) mmol/L Chloride 103.3 (98-107) mmol/L Carbon Dioxide 19 L (22-30) mmol/L BUN 23 H (7-17) mg/dL Creatinine 1.5 H (0.6-1.2) mg/dL Glucose 153 H (65-100) mg/dL Calcium 8.7 (8.4-10.2) mg/dL Calcium panel 05/22/22 Range/Units 11:38 Calcium 8.7 (8.4-10.2) mg/dL Pituitary panel 05/22/22 Range/Units 11:38 Sodium 137 (137-145) mmol/L Potassium 4.0 (3.6-5.0) mmol/L Chloride 103.3 (98-107) mmol/L Carbon Dioxide 19 L (22-30) mmol/L BUN 23 H (7-17) mg/dL Creatinine 1.5 H (0.6-1.2) mg/dL Glucose 153 H (65-100) mg/dL Calcium 8.7 (8.4-10.2) mg/dL Adrenal panel 05/22/22 Range/Units 11:38 Sodium 137 (137-145) mmol/L Potassium 4.0 (3.6-5.0) mmol/L Chloride 103.3 (98-107) mmol/L Carbon Dioxide 19 L (22-30) mmol/L BUN 23 H (7-17) mg/dL Creatinine 1.5 H (0.6-1.2) mg/dL Glucose 153 H (65-100) mg/dL Calcium 8.7 (8.4-10.2) mg/dL
--- NOTE | 2022-05-23 10:15 | Progress Note ---
Assessment and Plan 51 yo woman with DM, HTN, uterine fibroids, and large ventral incisional hernia -tolerating diet, no issues, will add miralax for constipation -WBC trended down significantly -pt was counseled to see her PCP and get BP and DM medications, she will follow outpatient for discussion of Ventral incisional hernia repair after optimization of medical conditions. gyne will obtain pelvic US and if any procedure planned please reach out for future planning combo case -ok for discharge from surgery stand point Subjective Date of service: 05/23/22 Narrative: doing well, pain well controlled, no nausea or vomiting, remains constipated. feels better today Objective - Exam Narrative Exam: Gen: CAOx3, no distress RESP: breathing comfortably, no distress CVS: RRR abdomen: soft, NDNT, hernia remains large, non tender Vital Signs - 12hr 05/22/22 05/23/22 05/23/22 23:35 05:35 05:58 Temperature 98.9 F Pulse Rate 89 Respiratory 20 Rate Blood Pressure 184/96 184/96 O2 Sat by Pulse 95 94 Oximetry - Labs 05/23/22 05:49 05/22/22 11:38 Diabetes panel 05/22/22 Range/Units 11:38 Sodium 137 (137-145) mmol/L Potassium 4.0 (3.6-5.0) mmol/L Chloride 103.3 (98-107) mmol/L Carbon Dioxide 19 L (22-30) mmol/L BUN 23 H (7-17) mg/dL Creatinine 1.5 H (0.6-1.2) mg/dL Glucose 153 H (65-100) mg/dL Calcium 8.7 (8.4-10.2) mg/dL Calcium panel 05/22/22 Range/Units 11:38 Calcium 8.7 (8.4-10.2) mg/dL Pituitary panel 05/22/22 Range/Units 11:38 Sodium 137 (137-145) mmol/L Potassium 4.0 (3.6-5.0) mmol/L Chloride 103.3 (98-107) mmol/L Carbon Dioxide 19 L (22-30) mmol/L BUN 23 H (7-17) mg/dL Creatinine 1.5 H (0.6-1.2) mg/dL Glucose 153 H (65-100) mg/dL Calcium 8.7 (8.4-10.2) mg/dL Adrenal panel 05/22/22 Range/Units 11:38 Sodium 137 (137-145) mmol/L Potassium 4.0 (3.6-5.0) mmol/L Chloride 103.3 (98-107) mmol/L Carbon Dioxide 19 L (22-30) mmol/L BUN 23 H (7-17) mg/dL Creatinine 1.5 H (0.6-1.2) mg/dL Glucose 153 H (65-100) mg/dL Calcium 8.7 (8.4-10.2) mg/dL
[2022-05-23] MEDS: ESCITALOPRAM 10 MG TAB PO SCH (10:29)
[2022-05-23] MEDS: amLODIPine 10 MG TAB PO SCH (10:29)
[2022-05-23] MEDS: HEPARIN 5,000 UNIT/1 ML VIAL SUB-Q SCH (10:41)
[2022-05-23 10:44] VITALS: BP 162/99
--- NOTE | 2022-05-23 13:12 | Ultrasound Report ---
ULTRASOUND PELVIS INDICATION / CLINICAL INFORMATION: fibroids. TECHNIQUE: Transabdominal. Duplex Color Doppler used: No. COMPARISON: CT abdomen pelvis 05/21/2022. FINDINGS: UTERUS: - Appearance: Enlarged, leiomyomatous. - Size (cm): 17.8 x 11.9 x 6.4 cm. - Endometrial Complex (if present): No significant abnormality.. Thickness in cm (if measured) = 0.8 cm. - Mass or cyst: Multiple uterine fibroids. The largest is right subserosal measuring 7.8 cm in angus l dimension.. - Additional findings: None. RIGHT ADNEXA: The right ovary is not visualized. No significant adnexal abnormality. LEFT ADNEXA: The left ovary measures 2.2 x 2.3 x 1.2 cm. No significant ovarian cyst or mass. Normal color Doppler blood flow. URINARY BLADDER: No significant abnormality. FREE FLUID: None. ADDITIONAL FINDINGS: None. IMPRESSION: 1. The uterus is enlarged with multiple fibroids measuring up to 7.8 cm. 2. Nonvisualization of the right ovary. Scribed by: Nithya Champion RDMS, JOSSELINE, MANOLO Scribed: 05/23/2022 12:00 PM I have reviewed the images, agree with this report, and edited this report as needed. Signer Name: Deng Meade MD Signed: 05/23/2022 1:07 PM Workstation Name: [employer]
--- NOTE | 2022-05-23 13:28 | Discharge Summary ---
Providers - Providers Date of Admission: 05/21/22 18:20 Date of discharge: 05/23/22 Attending physician: LUCÍA CHAMPAGNE MD 05/21/22 13:20 Consult to Physician [CONS] Routine Comment: Consulting Provider: ZACK GUARDADO I. Physician Instructions: Reason For Exam: ventral hernia 05/22/22 11:12 Consult to Physician [CONS] Routine Comment: Consulting Provider: MEGA TEAGUE Physician Instructions: Reason For Exam: Internal necrosis of uterine fibroids on CT A/P Primary care physician: JOAQUIM MENARD Hospitalization Reason for admission: abdominal pain Condition: Stable Hospital course: Patient is a 51-year-old female with history of fibroids, hypertension and type 2 diabetes who presented with severe abdominal pain. CT scan of the abdomen and pelvis revealed a large ventral abdominal hernia with extrusion of much of the small bowel, cecum and transverse colon without obstruction. It also showed enlarged and multilobulated uterus. Pelvic ultrasound showed enlarged uterus with multiple fibroids. General surgery and gynecology evaluated the patient and determined that she was most appropriate for outpatient follow-up. Once clinically stable, she was discharged home. Disposition: 01 HOME / SELF CARE / HOMELESS Final Discharge Diagnosis (Prints w/discharge instructions): Acute abdominal pain. Ventral hernia without obstruction or gangrene. SIRS without organ dysfunction. ANITA secondary to vasomotor nephropathy. Fibroids. Hypertension. [id number] type 2 diabetes mellitus. Depression. Obesity Time spent for discharge: 40 miinutes Core Measure Documentation - Palliative Care Palliative Care/ Comfort Measures: Not Applicable - Core Measures Any of the following diagnoses?: none Exam - Physical Exam Narrative exam: GENERAL: Well-developed well-nourished. In no acute distress. HEENT: Normocephalic. Atraumatic. NECK: Supple. CHEST/LUNGS: CTAB on room air HEART/CARDIOVASCULAR: RRR. No murmur, rubs or gallops appreciated. ABDOMEN: +BS. NT/ND. SKIN: No rashes noted. NEURO: No focal motor deficit. Follows all commands. MUSCULOSKELETAL: No joint effusion EXTREMITIES: No cyanosis, clubbing or edema. PSYCH: Cooperative. - Constitutional Vitals: Temp Pulse Resp BP Pulse Ox 98.0 F 103 H 18 162/99 96 05/23/22 10:04 05/23/22 10:29 05/23/22 10:04 05/23/22 10:29 05/23/22 10:04 Plan Care Plan Goals: Please follow-up with the dog sitter for your fibroids. Please make sure to follow-up with your primary care doctor for further refills of your medications. Also have them to refer you for age appropriate colonoscopy (colon cancer screening). Please follow up with the Surgeon to address the hernia seen on CT scan. He is Dr. Zack Guardado MD you can call [phone] for an appointment. If you have worsening of your symptoms, intractable nausea, vomiting and or severe constipation please return to the ED. Follow up with: JOAQUIM MENARD MD [Primary Care Provider] - 7 Days MEGA TEAGUE MD [Staff Physician] - 6 Weeks Prescriptions: glipiZIDE [Glucotrol] 5 mg PO QDDIAB 30 Days #30 tablet hydroCHLOROthiazide [HCTZ] 25 mg PO QDAY 90 Days #90 tablet Escitalopram [Lexapro] 10 mg PO DAILY 90 Days #90 tab Naproxen Sodium [Naproxen Sodium ER] 750 mg PO QDAY PRN 7 Days #14 tab PRN Reason: Pain, Moderate (4-6)
--- NOTE | 2022-05-23 13:29 | Progress Note ---
Assessment and Plan - Patient Problems (1) Uterine fibroid Current Visit: Yes Status: Acute Plan to address problem: Will administer Depo-Provera in an attempt to minimize vaginal bleeding Patient would be a candidate for a myomectomy or hysterectomy depending on her choice Patient can follow-up as an outpatient (2) Menorrhagia Current Visit: Yes Status: Acute Subjective - Subjective Date of service: 05/23/22 Interval history: The patient denies any new symptoms today. Pelvic ultrasound was performed that demonstrated a markedly enlarged fibroid uterus with an overall length of 17.8 cm with the largest leiomyoma measuring 7.8 cm. The patient reports having had a myomectomy in the past with recurrence of her uterine fibroids. Medical and surgical options have been discussed with the patient. She is currently uninsured. Will likely proceed with medical management at this point. Patient reports: appetite normal, voiding normally Objective - Vital Signs Latest vital signs: Vital Signs Temp Pulse Resp BP BP Pulse Ox 05/23/22 10:29 103 H 162/99 05/23/22 10:04 98.0 F 103 H 18 162/99 96 05/23/22 05:58 184/96 05/23/22 05:35 98.9 F 89 20 184/96 94 05/22/22 23:35 95 05/22/22 21:50 98.7 F 105 H 18 148/76 93 05/22/22 21:18 150/75 05/22/22 17:52 94 H 199/104 05/22/22 17:45 20 05/22/22 16:39 98.9 F 94 H 18 199/104 98 Intake and Output 05/22/22 05/23/22 05/23/22 22:59 06:59 14:59 Intake Total 340 360 Balance 340 360 Intake: IV 100 CEFEPIME/NS 2 GM/100 ML 2 100 gm In 100 ml @ 200 mls/ hr IV Q12H [facility] Rx#: [id number] Oral 240 360 Other: Total, Intake Amount 240 360 Voiding Method Toilet Toilet Weight 96.162 kg - Labs Labs: Abnormal lab results 05/22/22 05/22/22 05/22/22 Range/Units 10:06 16:39 18:03 WBC (4.5-11.0) K/mm3 MCH (28-32) pg Carlton # (Auto) (0.0-0.8) K/mm3 Seg Neutrophils % (40.0-70.0) % Seg Neutrophils # (1.8-7.7) K/mm3 POC Glucose 162 H 188 H 257 H (70-105) mg/dL 05/23/22 05/23/22 05/23/22 Range/Units 01:15 05:31 05:49 WBC 13.5 H (4.5-11.0) K/mm3 MCH 27 L (28-32) pg Carlton # (Auto) 0.9 H (0.0-0.8) K/mm3 Seg Neutrophils % 73.0 H (40.0-70.0) % Seg Neutrophils # 9.8 H (1.8-7.7) K/mm3 POC Glucose 180 H 192 H (70-105) mg/dL
[2022-05-23] MEDS ORDERED: medroxyPROGESTERone ACETATE 150 MG/ML SYRINGE IM ONE (14:30)
== END 2022-05-23 16:30 | disposition home or self-care (01) | DRG 393 ==
LOC: ED 07:17 → 3A 18:20
PROVIDERS: ADMIT Internal Medicine; ATTEND Student in an Organized Health Care Education/Training Program
PROC: 4A033R1 Measurement of Arterial Saturation, Peripheral, Percutaneous Approach (ICD-10-PCS; principal; 2022-05-21)
DX: K43.9 Ventral hernia without obstruction or gangrene (principal); N17.0 Acute kidney failure with tubular necrosis; R65.10 Systemic inflammatory response syndrome (SIRS) of non-infectious origin without acute organ dysfunction; K57.92 Diverticulitis of intestine, part unspecified, without perforation or abscess without bleeding; D25.9 Leiomyoma of uterus, unspecified; I10 Essential (primary) hypertension; E11.9 Type 2 diabetes mellitus without complications; F32.A Depression, unspecified; E66.9 Obesity, unspecified; Z71.3 Dietary counseling and surveillance; E66.01 Morbid (severe) obesity due to excess calories; Z68.34 Body mass index [BMI] 34.0-34.9, adult; N92.0 Excessive and frequent menstruation with regular cycle; Z79.4 Long term (current) use of insulin
CPT/HCPCS: 36415; 74177; 76856; 80048; 80076; 80307; 81001; 82140; 82803; 82962; 83735; 84100; 84703; 85007; 85025; 87040; 96374; 96375; 96376; 99285; G0378; J3490; Q9967; J0360; J0692; J1050; J1170; J1644; J1815; J1885; J2270; J2405; J7030